=== PATIENT | female | born 1990 | race African-American/Black ===

== ENCOUNTER 2017-10-19 17:38 | Emergency (ER) | payer OTHER ==
[~2017-10-19] VITALS: Ht 175.3 cm; Wt 63.5 kg
[2017-10-19 19:56] VITALS: BP 108/75
--- NOTE | 2017-10-19 20:31 | Emergency Room Report ---
History of Present Illness General Chief Complaint: Headache Source: Patient Present Illness HPI 26 y.o. F no sig pmhx, c/o one day of dizziness, HENDERSON, photophobia, nausea post head trauma. pt hit her head to a scalator 24hrs ago, reporting no LOC, no dizziness at impact, no fall, no HENDERSON at impact. pt woke up this morning with dizziness, HENDERSON 10/10, no radiation, and photophobia with nausea. did not take pain meds. denies memory loss, LMP 2 wks ago, is sexually active with no protection and no BCM. further c/o generalized fatigue. 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4 ,intestinal scar tissue Review of Systems All Other Systems: negative except mentioned in HPI Physical Exam Vital Signs Date Time Temp Pulse Resp B/P (MAP) Pulse Ox O2 Delivery O2 Flow Rate FiO2 10/19/17 17:54 98.3 64 18 108/75 98 Room Air 98.2 Sp02 EP Interpretation: reviewed, normal General Appearance: normal inspection, alert, GCS 15, non-toxic, mild distress Eyes: bilateral eye normal inspection, bilateral eye PERRL, bilateral eye photophobia, bilateral eye visual acuity - unremarkable ENT: normal ENT inspection, hearing grossly normal Neck: normal inspection, full range of motion, supple, no bony tend Respiratory: normal inspection, chest non-tender, lungs clear, normal breath sounds, no rhonchi, no respiratory distress, no retraction, no accessory muscle use Cardiovascular #1: normal inspection, normal peripheral pulses, regular rate, rhythm, no edema, no gallop, no JVD, no murmur, no rub Gastrointestinal: normal inspection, normal bowel sounds, non tender, soft Rectal: deferred Genitourinary: deferred Musculoskeletal: normal inspection, back normal, normal range of motion Neurologic: normal inspection, alert, oriented x3, responsive, 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 Kearney Reaction to Intervention: No change Diagnostic Impression: Primary Impression: Concussion Additional Impression: Headache ER Course 26 y.o. F no sig pmhx, c/o one day of dizziness, HENDERSON, photophobia, nausea post head trauma. pt hit her head to a scalator 24hrs ago, reporting no LOC, no dizziness at impact, no fall, no HENDERSON at impact. pt woke up this morning with dizziness, HENDERSON 10/10, no radiation, and photophobia with nausea. did not take pain meds. denies memory loss, LMP 2 wks ago, is sexually active with no protection and no BCM. further c/o generalized fatigue. Ddx considered but are not limited to cerebral hematoma, concussion, head contusion Vital signs: are WNL, pt. is afebrile H&PE are most consistent with concussion ORDERS: Head CT no contrast, urine test ED INTERVENTIONS: None required at this time. urine HCG neg Lab Results Impression negative Urine HCG CT/MRI/US Diagnostic Results CT/MRI/US Diagnostic Results : Imaging Test Ordered: head CT no contrast Impression no hematoma, no acute changes Last Vital Signs Date Time Temp Pulse Resp B/P (MAP) Pulse Ox O2 Delivery O2 Flow Rate FiO2 10/19/17 19:56 98.2 64 18 108/75 98 Room Air 98.2 Status: unchanged Disposition: HOME, SELF-CARE Condition: Stable Patient Instructions: Concussion, Adult, [id number], General Headache Without Cause Additional Instructions: f/u with pcp for possible head MRI. possible concussion, avoid screen time, rest , hydrate, take NSAID prn pain, if symptoms worsen return to ED Gianfranco Helms Oct 19, 2017 20:31
[2017-10-19 20:40] VITALS: BP 108/75
--- NOTE | 2017-10-19 21:21 | Diagnostic Imaging Report ---
EXAM: CT Head Without Intravenous Contrast CLINICAL HISTORY: TRAUMA TECHNIQUE: Axial computed tomography images of the head/brain without intravenous contrast. CTDI is 0.15, 70.38 MGy and DLP is 1432 mGy-cm. One or more of the following dose reduction techniques were used: automated exposure control, adjustment of the mA and/or kV according to patient size, use of iterative reconstruction technique. COMPARISON: No relevant prior studies available. FINDINGS: Brain: No acute infarct, hemorrhage, mass or edema. No significant white matter disease. Ventricles: Unremarkable. No ventriculomegaly. Bones/joints: No acute osseous abnormality. Soft tissues: Unremarkable. Sinuses: Sinuses are patent. Mastoid air cells: Unremarkable as visualized. No mastoid effusion. IMPRESSION: No acute findings.
== END 2017-10-19 20:40 | disposition home or self-care (01) ==
LOC: EMR 18:30
DX: S06.0X0A Concussion without loss of consciousness, initial encounter (principal); W19.XXXA Unspecified fall, initial encounter; Y92.89 Other specified places as the place of occurrence of the external cause; Z88.5 Allergy status to narcotic agent; Z88.1 Allergy status to other antibiotic agents
CPT/HCPCS: 70450; 81025; 99284